=== PATIENT | female | born 1940 | race Caucasian/White ===

== ENCOUNTER 2019-03-25 03:26 | Emergency (ER) | payer MEDICARE, BC ==
[~2019-03-25] VITALS: Ht 165.1 cm; Wt 91.0 kg
[2019-03-25] MEDS ORDERED: diphenhydrAMINE 25mg capsule PO ONE (04:30)
[2019-03-25] MEDS ORDERED: famotidine 10mg tablet PO ONE (04:30)
[2019-03-25] MEDS ORDERED: dexamethasone 4mg tablet PO ONE (04:30)
[2019-03-25] MEDS ORDERED: PRED20TA PO ×2 (04:31→04:34)
[2019-03-25] MEDS ORDERED: OMEP-297 PO (04:34)
[2019-03-25] MEDS ORDERED: FAMO20TA44 PO (04:34)
[2019-03-25 04:49] VITALS: BP 156/61
== END 2019-03-25 04:52 | disposition home or self-care (01) ==
LOC: ER 03:27
DX: L50.9 Urticaria, unspecified (principal); K21.9 Gastro-esophageal reflux disease without esophagitis; L98.8 Other specified disorders of the skin and subcutaneous tissue; Z88.7 Allergy status to serum and vaccine; Z79.899 Other long term (current) drug therapy
CPT/HCPCS: 99284; Q0163

== ENCOUNTER 2019-04-05 19:12 | Emergency (ER) | payer MEDICARE, BC ==
[~2019-04-05] VITALS: Ht 165.1 cm; Wt 90.0 kg
[~2019-04-05 19:12] MED LIST: FAMO20TA44 PO; OMEP-297 PO; PRED20TA PO
[2019-04-05] MEDS ORDERED: aspirin 81mg tab.chew PO ONE (19:15)
[2019-04-05 19:48] LABS: BASOPHILS % (AUTO) 0.1 % (0-1); EOSINOPHILS # (AUTO) 0.1 X10'3 (0-0.9); EOSINOPHILS % (AUTO) 0.7 % (0-6); HEMATOCRIT 40.9 % (35.0-45.0); HEMOGLOBIN 13.6 g/dl (12.0-16.0); LYMPHOCYTES # (AUTO) 2.8 X10'3 (1.1-4.8); LYMPHOCYTES % (AUTO) 20.4 % (21-51); MEAN CORPUSCULAR HEMOGLOBIN 28.6 PG (27.0-31.0); MEAN CORPUSCULAR HGB CONC 33.3 g/dL (33.0-36.5); MEAN CORPUSCULAR VOLUME 85.9 FL (78-98); MEAN PLATELET VOLUME 8.2 FL (7.4-10.4); MONOCYTES # (AUTO) 0.8 X10'3 (0-0.9); MONOCYTES % (AUTO) 5.6 % (2-12); NEUTROPHILS # (AUTO) 10.2 X10'3 (1.8-7.7); NEUTROPHILS % (AUTO) 73.2 % (42-75); PLATELET COUNT 311 X10'3 (140-440); RED BLOOD COUNT 4.76 X10'6 (4.20-5.60); RED CELL DISTRIBUTION WIDTH 14.3 % (11.5-14.5); WHITE BLOOD COUNT 13.9 X10'3 (4.5-11.0)
[2019-04-05 20:00] LABS: ALANINE AMINOTRANSFERASE 22 U/L (12-78); ALBUMIN 3.1 G/DL (3.4-5.0); ALBUMIN/GLOBULIN RATIO 0.9 (1.1-1.5); ALKALINE PHOSPHATASE 109 IU/L (46-116); ANION GAP 2 (8-16); ASPARTATE AMINO TRANSFERASE 11 U/L (10-37); BILIRUBIN,TOTAL 0.3 MG/DL (0.1-1.0); BLOOD UREA NITROGEN 22 MG/DL (7-18); BUN/CREATININE RATIO 20.6 (6.6-38.0); CALCIUM 9.1 MG/DL (8.5-10.1); CHLORIDE 106 MMOL/L (99-107); CREATININE 1.07 MG/DL (0.40-0.90); GLUCOSE 94 MG/DL (70-104); POTASSIUM 4.2 MMOL/L (3.5-5.1); SODIUM 145 MMOL/L (135-145); TOTAL CARBON DIOXIDE 37.5 MMOL/L (24-32); TOTAL PROTEIN 6.4 G/DL (6.4-8.2); eGFR 49 ML/MIN
[2019-04-05 20:06] LABS: MAGNESIUM 2.1 MG/DL (1.5-2.4)
[2019-04-05 21:04] VITALS: BP 158/50
== END 2019-04-05 21:05 | disposition home or self-care (01) ==
LOC: ER 19:13
DX: K21.9 Gastro-esophageal reflux disease without esophagitis (principal); Z88.7 Allergy status to serum and vaccine; Z79.899 Other long term (current) drug therapy
CPT/HCPCS: 36415; 71045; 80053; 83735; 83880; 84484; 85025; 93005; 99284

== ENCOUNTER 2023-08-02 05:51 | Day surgery (SDC) | payer MEDICARE, BC ==
[2023-07-26 16:47] LABS: BASOPHILS % (AUTO) 0.6 % (0-1); EOSINOPHILS # (AUTO) 0.2 X10'3 (0-0.9); EOSINOPHILS % (AUTO) 2.8 % (0-6); LYMPHOCYTES # (AUTO) 2.4 X10'3 (1.1-4.8); LYMPHOCYTES % (AUTO) 28.2 % (21-51); MEAN CORPUSCULAR HEMOGLOBIN 27.4 PG (27.0-31.0); MEAN CORPUSCULAR HGB CONC 31.9 g/dL (33.0-36.5); MEAN CORPUSCULAR VOLUME 85.9 FL (78-98); MEAN PLATELET VOLUME 8.1 FL (7.4-10.4); MONOCYTES # (AUTO) 0.7 X10'3 (0-0.9); MONOCYTES % (AUTO) 8.9 % (2-12); NEUTROPHILS % (AUTO) 59.5 % (42-75); PRE OP HEMATOCRIT 40.7 % (35.0-45.0); PRE OP PLATELET COUNT 293 X10'3 (140-440); PRE OP WHITE BLOOD COUNT 8.4 10'3 (4.8-10.8); RED BLOOD COUNT 4.73 X10'6 (4.20-5.60); RED CELL DISTRIBUTION WIDTH 13.5 % (11.5-14.5)
[2023-07-26 17:13] LABS: PRE OP PROTIME 10.2 SECONDS (9.0-12.0)
[2023-07-26 17:20] LABS: ALBUMIN 3.4 G/DL (3.4-5.0); ALBUMIN/GLOBULIN RATIO 0.8 (1.1-1.5); ALKALINE PHOSPHATASE 116 IU/L (46-116); BLOOD UREA NITROGEN 21 MG/DL (7-18); BUN/CREATININE RATIO 21.6 (10.0-20.0); CALCIUM 9.7 MG/DL (8.5-10.1); CHLORIDE 106 MMOL/L (99-107); CREATININE 0.97 MG/DL (0.40-0.90); PRE OP ALT 22 U/L (30-65); PRE OP ANION GAP 6 (8-16); PRE OP AST 18 U/L (10-37); PRE OP BILIRUB, TOTAL 0.2 MG/DL (0.0-1.0); PRE OP GLUCOSE 135 MG/DL (70-104); PRE OP POTASSIUM 4.2 MMOL/L (3.4-5.1); PRE OP SODIUM 141 MMOL/L (135-145); TOTAL CARBON DIOXIDE 29.4 MMOL/L (24-32); TOTAL PROTEIN 7.9 G/DL (6.4-8.2); eGFR 55 ML/MIN
[2023-08-02] VITALS (12 sets, daily range): BP systolic 119–152; BP diastolic 37–104; PULSE 65–76; RESP 12–22; TEMP 97.9; O2SAT 94–99
[~2023-08-02] VITALS: Ht 165.1 cm; Wt 89.3 kg
[2023-08-02] MEDS: cefazolin 2gm/D5W 100mL 100 ML IV ONE (05:30)
[~2023-08-02 05:51] MED LIST changes: +AMLO-380 PO; +DOCUMENT DATE & TIME OF BETA-BLOCKER PO ONE; -FAMO20TA44 PO; +LEVO25TA7 PO; +MAGN400C PO; +METO-384 PO; -OMEP-297 PO; -PRED20TA PO; +SIMV-42 PO; +VITAMIN D3
[2023-08-02] MEDS: famotidine 20mg tablet PO ONE (06:37)
[2023-08-02] MEDS: ringers solution, lacted 1,000 ML IV SCH (06:37)
[2023-08-02] MEDS ORDERED: BUPIVAcaine/PF 2.5mg/ml (0.25%) 10ml vial ONE (06:54)
[2023-08-02] MEDS ORDERED: methylene blue (5mg/ml) 50mg/10ml ampul IV ONE (06:54)
[2023-08-02] MEDS ORDERED: sevoflurane 250ml liquid IH ONE (07:39)
[2023-08-02] MEDS ORDERED: midazolam 1 mg/ML 2ml injection ONE (07:40)
[2023-08-02] MEDS ORDERED: morphine 2 MG/ML inj. syringe IV PRN (07:40)
[2023-08-02] MEDS ORDERED: ringers solution, lacted 1,000 ML IV SCH (07:40)
[2023-08-02] MEDS ORDERED: fentaNYL/PF 50MCG/1 ML 2ML syringe ONE (07:40)
[2023-08-02] MEDS ORDERED: proCHLORperazine 10 MG/2 ml inj IV PRN (07:40)
[2023-08-02] MEDS ORDERED: morphine 4 MG/ML inj SYRINge IV PRN (07:40)
[2023-08-02] MEDS ORDERED: propofol inj 20 ML IV ONE (07:40)
[2023-08-02] MEDS ORDERED: meperidine/PF 25mg/ml syringe IV PRN ×3 (07:40)
[2023-08-02] MEDS ORDERED: dexamethasone sod phosphate 4mg/ml inj. ONE (08:35)
[2023-08-02] MEDS ORDERED: ondansetron/PF 4mg/2ml inj ONE (08:45)
[2023-08-02] MEDS: LIDOcaine 1% (10mg/ml)w/preservative inj. 20ml MDV ONE (08:45)
[2023-08-02] MEDS: BUPIVACAINE liposomal/PF 13.3 MG/ML vial IM ONE (08:46)
[2023-08-02] MEDS: ondansetron/PF 4mg/2ml inj IV PRN (09:12)
== END 2023-08-02 10:44 | disposition home or self-care (01) ==
LOC: PAS 05:51 → EDBD 07:30 → PAS 10:44
PROVIDERS: ATTEND Surgery
DX: C50.412 Malignant neoplasm of upper-outer quadrant of left female breast (principal); Z79.899 Other long term (current) drug therapy; Z98.890 Other specified postprocedural states; Z79.01 Long term (current) use of anticoagulants; Z90.49 Acquired absence of other specified parts of digestive tract; Z90.710 Acquired absence of both cervix and uterus; I10 Essential (primary) hypertension
CPT/HCPCS: 19301; 36415; 76098; 80053; 82948; 85025; 85610; 85730; 93005; C9290; J0690; J1100; J2250; J2405; J2704; J3010; J3490; J7030; J7120; Z7506; Z7508; Z7512; A4215; A4618; A6258; A7000; Q9968